=== PATIENT | male | born 1995 | race Caucasian/White ===

== ENCOUNTER 2020-02-18 17:31 | Emergency (ER) | payer OTHER ==
[~2020-02-18] VITALS: Ht 193 cm; Wt 78.9 kg
== END 2020-02-18 21:19 | disposition home or self-care (01) ==
LOC: ER 17:31
DX: K40.90 Unilateral inguinal hernia, without obstruction or gangrene, not specified as recurrent (principal)

== ENCOUNTER 2020-03-15 07:11 | Outpatient (CLI) | payer OTHER | END 2020-03-15 07:13 | disposition home or self-care (01) | LOC: TOM 07:11 | PROVIDERS: ATTEND Family Medicine | DX: R10.31 Right lower quadrant pain (principal) ==

== ENCOUNTER 2020-07-30 09:50 | Emergency (ER) | payer OTHER ==
[~2020-07-30] VITALS: Ht 193 cm; Wt 73.0 kg
[2020-07-30] MEDS ORDERED: DICLOFENAC POTA50 MG PO (13:14)
[2020-07-30] MEDS ORDERED: MORGIDOX100 MG PO (13:14)
[2020-07-30] MEDS ORDERED: INTESTINEX680 M1 PO (13:14)
== END 2020-07-30 13:23 | disposition home or self-care (01) ==
LOC: ER 09:50
DX: N43.2 Other hydrocele (principal); N50.812 Left testicular pain; S90.562A Insect bite (nonvenomous), left ankle, initial encounter; L03.116 Cellulitis of left lower limb; L08.89 Other specified local infections of the skin and subcutaneous tissue; T78.49XA Other allergy, initial encounter; W57.XXXA Bitten or stung by nonvenomous insect and other nonvenomous arthropods, initial encounter; Y93.89 Activity, other specified; Y92.89 Other specified places as the place of occurrence of the external cause; Y99.8 Other external cause status

== ENCOUNTER 2020-08-10 05:44 | Day surgery (SDC) | payer OTHER ==
[~2020-08-10 05:44] MED LIST: DICLOFENAC POTA50 MG PO; INTESTINEX680 M1 PO; MORGIDOX100 MG PO
[2020-08-10] MEDS ORDERED: SURFAK240 M1 PO (13:16)
[2020-08-10] MEDS ORDERED: POLY119PG PO (13:16)
[2020-08-10] MEDS ORDERED: ULTRAM50 MG PO (13:16)
[2020-08-10] MEDS ORDERED: NEURONTIN800 MG PO (13:16)
== END 2020-08-10 21:00 | disposition home or self-care (01) ==
LOC: CIR.AMB 05:44
PROVIDERS: ATTEND Surgery
DX: K40.90 Unilateral inguinal hernia, without obstruction or gangrene, not specified as recurrent (principal); K42.9 Umbilical hernia without obstruction or gangrene; K43.2 Incisional hernia without obstruction or gangrene; Z20.822 Contact with and (suspected) exposure to COVID-19